=== PATIENT | male | born 1955 | race Caucasian/White ===

== ENCOUNTER 2017-01-16 10:19 | Emergency (ER) | payer OTHER, SELFPAY ==
[~2017-01-16 10:19] MED LIST: Sodium Chloride 0.9% 1,000 ML BAG ONE
[2017-01-16 11:04] LABS: #Basophils 0.1 thou/uL (0.0-0.2); #Eosinphils 0.1 thou/uL (0.0-0.7); #Monocytes 0.9 thou/uL (0.11-0.59); #Neutrophils 8.8 thou/uL (1.40-6.50); %Basophils 0.6 % (0.0-1.0); %Eosinophils 0.9 % (0.0-10.0); %Monocytes 7.9 % (0.0-10.0); %Neutrophils 73.6 % (42.0-75.0); Hemoglobin 15.2 g/dL (14.0-18.0); Mean Corpuscular HGB CONC 33.5 g/dL (32.0-36.0); Mean Corpuscular Hemoglobin 31.2 pg (27.0-31.0); Mean Corpuscular Volume 93.2 fl (80.0-94.0); Mean Platelet Volume 6.5 fL (7.4-10.4); Platelet Count 265 thou/uL (130-400); RBC Distribution Width 12.5 % (11.5-14.5); Red Blood Cell (RBC) Count 4.86 mill/uL (4.70-6.10)
[2017-01-16 11:15] LABS: INR-International Normal Ratio 1.1; PTT 28.9 SEC (22.9-36.1); Prothrombin Time 14.6 SEC (12.0-14.7)
[2017-01-16 11:16] LABS: ALT (SGPT) 28 U/L (0-55); AST (SGOT) 30 U/L (5-34); Albumin 4.4 g/dL (3.4-4.8); Alkaline Phosphatase 67 U/L (40-150); Anion Gap 15 mmol/L (10-20); BUN (Urea Nitrogen) 17 mg/dL (8.4-25.7); Calc. Creatinine Clearance 0 mL/min (70-130); Calcium 9.4 mg/dL (7.8-10.44); Carbon Dioxide 25 mmol/L (23-31); Chloride 101 mmol/L (98-107); Estimated GFR-MDRD 61; Globulin 2.7 g/dL (2.4-3.5); Glucose 110 mg/dL (80-115); Lipase 28 U/L (8-78); Potassium 4.4 mmol/L (3.5-5.1); Protein, Total 7.1 g/dL (5.8-8.1); Sodium 137 mmol/L (136-145)
[2017-01-16 11:19] LABS: CKMB 1.4 ng/mL (0-6.6); Troponin I Less than 0.010 ng/mL (< 0.028)
[2017-01-16] MEDS ORDERED: Pantoprazole 40 MG VIAL ONE (11:23)
[2017-01-16] MEDS ORDERED: Ondansetron HCl/PF 4 MG/2 ML Vial ONE (11:23)
--- NOTE | 2017-01-16 13:24 | ULT ---
RIGHT UPPER QUADRANT ULTRASOUND: Date: 01-16-17 History: Epigastric pain for 3-4 days, nausea, vomiting. FINDINGS: Multiplanar grayscale sonographic imaging of the right upper quadrant obtained. The images pancreas is unremarkable. The distal body and tail are obscured by bowel gas. There is no focal liver lesion or intrahepatic biliary dilatation noted. The hepatic parenchyma is n ot well assessed, however, secondary to heterogeneity and increased echogenicity of the hepatic pare nchyma which suggests hepatic steatosis. The common duct measures 6 mm, upper limits normal, for a patient of this age. 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 There is no pericholecystic fluid or gallbladder wall thickening. There is an echogenic focus within the gallbladder measuring 1.4 cm without shadowing, likely on the basis of a small polyp or a sludg e ball. No shadowing stones are seen. Right kidney measures 12 cm in craniocaudal dimension and demonstrates not stone, hydronephrosis or mass lesion. IMPRESSION: No sonographic evidence for cholecystitis. Upper limits of normal common bile duct size. Probable sl udge ball versus nonshadowing stone within the gallbladder lumen as detailed above. POS: OFF
== END 2017-01-16 13:35 | disposition home or self-care (01) ==
LOC: MADERS 10:19
DX: R10.13 Epigastric pain (principal); M10.9 Gout, unspecified; I10 Essential (primary) hypertension
CPT/HCPCS: 36415; 76705; 80053; 82553; 83690; 84484; 85025; 85610; 85730; 93005; 96361; 96374; 96375; C9113; J2405; J7050